=== PATIENT | female | born 1945 | race Caucasian/White ===

== ENCOUNTER 2016-10-26 07:15 | Inpatient (IN) | payer MEDICARE, OTHER ==
[2016-10-11 14:35] VITALS: BMI 40.0
[2016-10-11 15:27] VITALS: BP_SYST 124; RESP 18; TEMP 98.2
[~2016-10-26] VITALS: Ht 185.4 cm; Wt 108.0 kg
[2016-11-09] VITALS (24 sets, daily range): BP systolic 81–149; RESP 16–26; TEMP 97.4–98.3; BMI 39.2
[2016-11-09] MEDS ORDERED: ALVIMOPAN 12 MG CAP PO ONE (06:30)
[2016-11-09] MEDS ORDERED: CEFOXITIN 2,000 MG in SODIUM CHLORIDE 0.9% 100 ML IV ONE (06:30)
[2016-11-09] MEDS ORDERED: LACT RINGERS 1,000 ML IV SCH (06:55)
[2016-11-09] MEDS ORDERED: MIDAZOLAM 2 MG/2 ML INJ IV ONE ×2 (06:55→10:11)
[2016-11-09] MEDS ORDERED: GLYCOPYRROLATE 0.2 MG/ML VIAL IV ONE ×3 (06:55→10:48)
[2016-11-09] MEDS ORDERED: LIDOCAINE 1% BUFFERED 1 ML SYR INTRADERM PRN (06:55)
[2016-11-09] MEDS ORDERED: SALINE FLUSH 10 ML FLUSH PRN (08:55)
[2016-11-09] MEDS ORDERED: DILTIAZEM CD 240 MG CAP PO SCH (09:00)
[2016-11-09] MEDS ORDERED: DEXTROSE 50% SYRINGE 50 ML IV PRN (10:05)
[2016-11-09] MEDS ORDERED: GLUCAGON 1 MG VIAL IM PRN (10:05)
[2016-11-09] MEDS ORDERED: GLUCAGON 1 MG VIAL IV ONE (10:40)
[2016-11-09] MEDS ORDERED: NEOSTIGMINE 10 MG/10 ML VIAL IV ONE (10:48)
[2016-11-09] MEDS ORDERED: ONDANSETRON 4 MG VIAL IV PUSH ONE (10:48)
[2016-11-09] MEDS ORDERED: PHENYLEPHRINE 10 MG/ML VIAL IV ONE (10:48)
[2016-11-09] MEDS ORDERED: ROCURONIUM 50 MG VIAL IV ONE (10:48)
[2016-11-09] MEDS ORDERED: PROPOFOL 20 ML PER ML IV ONE (10:48)
[2016-11-09] MEDS ORDERED: FENTANYL 100 MCG/2 ML AMP IV ONE (10:48)
[2016-11-09] MEDS: novoLOG MIX 70/30 INSULIN SUBQ SCH ×2 (11:30→16:45)
[2016-11-09] MEDS: CETIRIZINE 10 MG TAB PO SCH (12:15)
[2016-11-09] MEDS: OLOPATADINE 0.1% OP SOLN EYE EACH SCH (12:19)
[2016-11-09] MEDS: LISINOPRIL 10 MG TAB PO SCH (12:23)
[2016-11-09] MEDS: METOPROLOL TART 25 MG TAB PO SCH ×2 (12:24→20:50)
[2016-11-09] MEDS: DUONEB INH SCH ×2 (14:19→22:37)
[2016-11-09] MEDS: SALINE FLUSH 10 ML FLUSH SCH (20:50)
[2016-11-09] MEDS: ROSUVASTATIN 20 MG TAB PO SCH (20:50)
[2016-11-09] MEDS: SODIUM CHLORIDE 0.9% FLUSH BAG 500 ML IV SCH (23:04)
[2016-11-10 03:38] VITALS: BP_SYST 144; RESP 18; TEMP 98.2
[2016-11-10] MEDS: DUONEB INH SCH ×3 (06:59→23:00)
[2016-11-10 07:31] VITALS: BP_SYST 150; RESP 18; TEMP 97.7
[2016-11-10] MEDS: novoLOG MIX 70/30 INSULIN SUBQ SCH ×2 (08:00→16:55)
[2016-11-10] MEDS: OLOPATADINE 0.1% OP SOLN EYE EACH SCH (08:29)
[2016-11-10] MEDS: SALINE FLUSH 10 ML FLUSH SCH ×2 (08:30→20:38)
[2016-11-10] MEDS: CETIRIZINE 10 MG TAB PO SCH (08:30)
[2016-11-10] MEDS: DILTIAZEM CD 180 MG CAP PO SCH (08:30)
[2016-11-10] MEDS: LISINOPRIL 10 MG TAB PO SCH (08:30)
[2016-11-10] MEDS: METOPROLOL TART 25 MG TAB PO SCH ×2 (08:30→20:50)
[2016-11-10] MEDS ORDERED: LIDOCAINE 1% BUFFERED 1 ML SYR INTRADERM PRN (10:50)
[2016-11-10] MEDS ORDERED: LACT RINGERS 1,000 ML IV SCH (10:50)
[2016-11-10] MEDS ORDERED: GLYCOPYRROLATE 0.2 MG/ML VIAL IV ONE (10:50)
[2016-11-10] MEDS ORDERED: MIDAZOLAM 2 MG/2 ML INJ IV ONE (10:50)
[2016-11-10 11:06] VITALS: BP_SYST 158; RESP 18; TEMP 97.7
[2016-11-10 15:15] VITALS: BP_SYST 144; RESP 18; TEMP 98.1
[2016-11-10] MEDS ORDERED: MAG CIT SOLN 300 ML PO ONE (16:00)
[2016-11-10] MEDS ORDERED: CEFOXITIN 2,000 MG in SODIUM CHLORIDE 0.9% 100 ML IV ONE (18:15)
[2016-11-10] MEDS ORDERED: ALVIMOPAN 12 MG CAP PO ONE (18:15)
[2016-11-10 19:00] VITALS: BP_SYST 149; RESP 18; TEMP 98.1
[2016-11-10] MEDS: ROSUVASTATIN 20 MG TAB PO SCH (20:50)
[2016-11-10 22:58] VITALS: BP_SYST 131; RESP 20; TEMP 98
[2016-11-11] VITALS (19 sets, daily range): BP systolic 112–185; RESP 16–22; TEMP 97.4–98.6
[2016-11-11] MEDS ORDERED: MAG CIT SOLN 300 ML PO ONE (03:00)
[2016-11-11] MEDS: SODIUM CHLORIDE 0.9% FLUSH BAG 500 ML IV SCH (04:31)
[2016-11-11] MEDS ORDERED: MIDAZOLAM 2 MG/2 ML INJ ONE (06:39)
[2016-11-11] MEDS ORDERED: CEFOXITIN 2,000 MG in SODIUM CHLORIDE 0.9% 100 ML IV ONE (06:40)
[2016-11-11] MEDS: DUONEB INH SCH ×3 (06:55→23:00)
[2016-11-11] MEDS: novoLOG MIX 70/30 INSULIN SUBQ SCH ×2 (08:00→17:00)
[2016-11-11] MEDS: SALINE FLUSH 10 ML FLUSH SCH ×2 (08:00→20:00)
[2016-11-11] MEDS ORDERED: MORPHINE 2 MG/ML SYR IV PRN (08:35)
[2016-11-11] MEDS ORDERED: MEPERIDINE 25 MG/ML IV PRN (08:35)
[2016-11-11] MEDS ORDERED: MORPHINE 4 MG/ML SYR IV PRN (08:35)
[2016-11-11] MEDS ORDERED: DILAUDID 1 MG/ML AMP IV PRN (08:35)
[2016-11-11] MEDS ORDERED: ONDANSETRON 4 MG VIAL IV PRN (08:35)
[2016-11-11] MEDS ORDERED: OXYCODONE 5 MG TAB PO PRN (08:35)
[2016-11-11] MEDS ORDERED: NALOXONE 0.4 MG/ML AMP IV PRN (08:35)
[2016-11-11] MEDS: METOPROLOL TART 25 MG TAB PO SCH ×3 (09:00→22:00)
[2016-11-11] MEDS: DILTIAZEM CD 180 MG CAP PO SCH ×2 (09:00→12:54)
[2016-11-11] MEDS: OLOPATADINE 0.1% OP SOLN EYE EACH SCH ×2 (09:00→12:53)
[2016-11-11] MEDS: CETIRIZINE 10 MG TAB PO SCH ×2 (09:00→12:55)
[2016-11-11] MEDS: LISINOPRIL 10 MG TAB PO SCH ×2 (09:00→12:55)
[2016-11-11] MEDS: BUPIV/FENT 0.125%-2MCG/ML 100 ML EPIDURAL SCH ×2 (10:00→18:47)
[2016-11-11] MEDS: **ONLY ANESTEHSIA MAY ORDER OPIATES WHILE ON EPIDURAL XX SCH ×2 (12:34→19:41)
[2016-11-11] MEDS: CEFOXITIN 2,000 MG in SODIUM CHLORIDE 0.9% 100 ML IV SCH ×2 (12:57→17:33)
[2016-11-11] MEDS: ALVIMOPAN 12 MG CAP PO SCH ×2 (12:57→22:00)
[2016-11-11] MEDS ORDERED: MISSING DOSE XX ONE (13:15)
[2016-11-11] MEDS: PANTOPRAZOLE 40 MG VIAL IV SCH (14:07)
[2016-11-11] MEDS ORDERED: OXYCODONE/APAP 5/325 TAB PO PRN (17:40)
[2016-11-11] MEDS: ONDANSETRON 4 MG VIAL IV PRN (18:16)
[2016-11-11] MEDS: SODIUM CHLORIDE 0.9% 1,000 ML IV SCH (20:36)
[2016-11-11] MEDS: ROSUVASTATIN 20 MG TAB PO SCH (22:00)
[2016-11-11] MEDS: PROMETHAZINE 25 MG/ML VIAL IV PRN (22:02)
[2016-11-12] MEDS: CEFOXITIN 2,000 MG in SODIUM CHLORIDE 0.9% 100 ML IV SCH ×3 (00:25→11:21)
[2016-11-12 03:45] VITALS: BP_SYST 177; RESP 18; TEMP 98.5
[2016-11-12] MEDS: SODIUM CHLORIDE 0.9% FLUSH BAG 500 ML IV SCH ×2 (04:08→22:41)
[2016-11-12] MEDS: BUPIV/FENT 0.125%-2MCG/ML 100 ML EPIDURAL SCH ×2 (05:27→15:39)
[2016-11-12] MEDS: DUONEB INH SCH ×3 (06:13→22:25)
[2016-11-12 07:26] VITALS: BP_SYST 178; RESP 15; TEMP 98.6
[2016-11-12] MEDS: **ONLY ANESTEHSIA MAY ORDER OPIATES WHILE ON EPIDURAL XX SCH ×2 (08:00→19:59)
[2016-11-12] MEDS: novoLOG MIX 70/30 INSULIN SUBQ SCH ×2 (08:39→17:00)
[2016-11-12] MEDS: OLOPATADINE 0.1% OP SOLN EYE EACH SCH (08:39)
[2016-11-12] MEDS: LISINOPRIL 10 MG TAB PO SCH (08:40)
[2016-11-12] MEDS: CETIRIZINE 10 MG TAB PO SCH (08:40)
[2016-11-12] MEDS: METOPROLOL TART 25 MG TAB PO SCH ×2 (08:40→20:31)
[2016-11-12] MEDS: DILTIAZEM CD 180 MG CAP PO SCH (08:40)
[2016-11-12] MEDS: PANTOPRAZOLE 40 MG VIAL IV SCH (08:46)
[2016-11-12] MEDS: SALINE FLUSH 10 ML FLUSH SCH ×2 (08:47→19:59)
[2016-11-12] MEDS: ALVIMOPAN 12 MG CAP PO SCH ×2 (08:47→20:31)
[2016-11-12 11:16] VITALS: BP_SYST 121; RESP 15; TEMP 98.1
[2016-11-12 15:29] VITALS: BP_SYST 118; RESP 15; TEMP 97.4
[2016-11-12 19:22] VITALS: BP_SYST 141; RESP 18; TEMP 98.6
[2016-11-12] MEDS: ROSUVASTATIN 20 MG TAB PO SCH (20:30)
[2016-11-12] MEDS ORDERED: Furosemide 20 MG/2 ML VIAL IV ONE (21:30)
[2016-11-12] MEDS: KCL CR 10 MEQ TAB PO SCH (22:07)
[2016-11-12 22:48] VITALS: BP_SYST 152; RESP 18; TEMP 98.3
[2016-11-13] MEDS: SODIUM CHLORIDE 0.9% 1,000 ML IV SCH ×2 (00:07→13:21)
[2016-11-13] MEDS: BUPIV/FENT 0.125%-2MCG/ML 100 ML EPIDURAL SCH ×2 (02:47→15:20)
[2016-11-13 02:57] VITALS: BP_SYST 120; RESP 16; TEMP 98
[2016-11-13 07:36] VITALS: BP_SYST 134; RESP 16; TEMP 98.1
[2016-11-13] MEDS: DUONEB INH SCH ×3 (07:48→22:26)
[2016-11-13] MEDS: **ONLY ANESTEHSIA MAY ORDER OPIATES WHILE ON EPIDURAL XX SCH ×2 (08:00→19:55)
[2016-11-13] MEDS: SALINE FLUSH 10 ML FLUSH SCH ×2 (08:55→19:55)
[2016-11-13] MEDS: novoLOG MIX 70/30 INSULIN SUBQ SCH ×2 (08:56→16:48)
[2016-11-13] MEDS: OLOPATADINE 0.1% OP SOLN EYE EACH SCH (08:57)
[2016-11-13] MEDS: PANTOPRAZOLE 40 MG VIAL IV SCH (08:58)
[2016-11-13] MEDS: CETIRIZINE 10 MG TAB PO SCH (08:58)
[2016-11-13] MEDS: ALVIMOPAN 12 MG CAP PO SCH ×2 (08:58→19:50)
[2016-11-13] MEDS: LISINOPRIL 10 MG TAB PO SCH (08:58)
[2016-11-13] MEDS: METOPROLOL TART 25 MG TAB PO SCH ×2 (08:58→19:51)
[2016-11-13] MEDS: DILTIAZEM CD 180 MG CAP PO SCH (08:59)
[2016-11-13] MEDS: ONDANSETRON 4 MG VIAL IV PRN ×2 (09:07→16:15)
[2016-11-13] MEDS: ASPIRIN 81 MG CHEW TAB PO SCH (09:18)
[2016-11-13] MEDS: KCL CR 10 MEQ TAB PO SCH ×2 (09:18→19:51)
[2016-11-13 10:59] VITALS: BP_SYST 149; RESP 16; TEMP 98.2
[2016-11-13 15:35] VITALS: BP_SYST 128; RESP 16; TEMP 98
[2016-11-13 19:14] VITALS: BP_SYST 159; RESP 18; TEMP 98.3
[2016-11-13] MEDS: ROSUVASTATIN 20 MG TAB PO SCH (19:50)
[2016-11-13 22:31] VITALS: BP_SYST 167; RESP 16; TEMP 99.5
[2016-11-14] VITALS (9 sets, daily range): BP systolic 122–174; RESP 16–22; TEMP 97.7–99.2; Ht 185.4 cm; Wt 108.0 kg
[2016-11-14] MEDS: SODIUM CHLORIDE 0.9% FLUSH BAG 500 ML IV SCH (03:42)
[2016-11-14] MEDS: SODIUM CHLORIDE 0.9% 1,000 ML IV SCH ×2 (04:57→17:16)
[2016-11-14] MEDS: BUPIV/FENT 0.125%-2MCG/ML 100 ML EPIDURAL SCH (04:58)
[2016-11-14] MEDS: PANTOPRAZOLE 40 MG TAB PO SCH (06:20)
[2016-11-14] MEDS: DUONEB INH SCH ×3 (07:04→22:12)
[2016-11-14] MEDS: SALINE FLUSH 10 ML FLUSH SCH ×2 (08:00→19:28)
[2016-11-14] MEDS: **ONLY ANESTEHSIA MAY ORDER OPIATES WHILE ON EPIDURAL XX SCH (08:00)
[2016-11-14] MEDS: PANTOPRAZOLE 40 MG VIAL IV SCH (08:46)
[2016-11-14] MEDS: ALVIMOPAN 12 MG CAP PO SCH (08:46)
[2016-11-14] MEDS: OLOPATADINE 0.1% OP SOLN EYE EACH SCH (08:46)
[2016-11-14] MEDS: ASPIRIN 81 MG CHEW TAB PO SCH (08:46)
[2016-11-14] MEDS: novoLOG MIX 70/30 INSULIN SUBQ SCH ×2 (08:46→18:11)
[2016-11-14] MEDS: METOPROLOL TART 25 MG TAB PO SCH ×2 (08:47→19:28)
[2016-11-14] MEDS: KCL CR 10 MEQ TAB PO SCH ×2 (08:47→19:28)
[2016-11-14] MEDS: CETIRIZINE 10 MG TAB PO SCH (08:47)
[2016-11-14] MEDS: LISINOPRIL 10 MG TAB PO SCH (08:47)
[2016-11-14] MEDS: DILTIAZEM CD 180 MG CAP PO SCH (08:48)
[2016-11-14] MEDS: NYSTATIN 500,000 UNITS/5 ML SUSP SWISH.SWAL SCH ×4 (11:07→19:28)
[2016-11-14] MEDS: ONDANSETRON 4 MG VIAL IV PRN (14:28)
[2016-11-14] MEDS: MORPHINE 2 MG/ML SYR IV PRN ×2 (14:32→17:15)
[2016-11-14] MEDS: ROSUVASTATIN 20 MG TAB PO SCH (19:28)
[2016-11-15 03:16] VITALS: BP_SYST 155; RESP 18; TEMP 97.9
[2016-11-15] MEDS: SODIUM CHLORIDE 0.9% 1,000 ML IV SCH ×2 (05:00→17:52)
[2016-11-15] MEDS: PANTOPRAZOLE 40 MG TAB PO SCH (05:54)
[2016-11-15] MEDS: SODIUM CHLORIDE 0.9% FLUSH BAG 500 ML IV SCH ×2 (05:57→20:28)
[2016-11-15 07:15] VITALS: BP_SYST 114; RESP 22; TEMP 97.8
[2016-11-15] MEDS: ONDANSETRON 4 MG VIAL IV PRN (07:57)
[2016-11-15] MEDS: MORPHINE 2 MG/ML SYR IV PRN ×2 (07:58→12:24)
[2016-11-15] MEDS: novoLOG MIX 70/30 INSULIN SUBQ SCH ×2 (07:59→17:00)
[2016-11-15] MEDS: DUONEB INH SCH ×2 (08:05→14:22)
[2016-11-15] MEDS: NEB-XOPENEX 1.25 MG/3 ML INH SCH ×4 (08:40→22:30)
[2016-11-15] MEDS: OLOPATADINE 0.1% OP SOLN EYE EACH SCH (09:38)
[2016-11-15] MEDS: ASPIRIN 81 MG CHEW TAB PO SCH (09:39)
[2016-11-15] MEDS: DILTIAZEM CD 180 MG CAP PO SCH (09:39)
[2016-11-15] MEDS: CETIRIZINE 10 MG TAB PO SCH (09:39)
[2016-11-15] MEDS: KCL CR 10 MEQ TAB PO SCH ×2 (09:39→20:27)
[2016-11-15] MEDS: LISINOPRIL 10 MG TAB PO SCH (09:40)
[2016-11-15] MEDS: METOPROLOL TART 25 MG TAB PO SCH (09:40)
[2016-11-15] MEDS: NYSTATIN 500,000 UNITS/5 ML SUSP SWISH.SWAL SCH ×4 (09:41→20:27)
[2016-11-15] MEDS: SALINE FLUSH 10 ML FLUSH SCH ×2 (10:16→20:28)
[2016-11-15 10:43] VITALS: BP_SYST 140; RESP 16; TEMP 98.6
[2016-11-15] MEDS: PROMETHAZINE 25 MG/ML VIAL IV PRN (12:23)
[2016-11-15] MEDS ORDERED: METOPROLOL TART 25 MG TAB PO ONE (12:25)
[2016-11-15] MEDS: LEVOFLOXACIN 500 MG TAB PO SCH (13:44)
[2016-11-15 14:48] VITALS: BP_SYST 149; RESP 16; TEMP 98.2
[2016-11-15 19:41] VITALS: BP_SYST 157; RESP 16; TEMP 98.4
[2016-11-15] MEDS: METOPROLOL TART 50 MG TAB PO SCH (20:27)
[2016-11-15] MEDS: ROSUVASTATIN 20 MG TAB PO SCH (20:27)
[2016-11-15 23:17] VITALS: BP_SYST 182; RESP 16; TEMP 98.5
[2016-11-16] VITALS (11 sets, daily range): BP systolic 150–176; RESP 16–18; TEMP 98.1–99.1
[2016-11-16] MEDS: PROMETHAZINE 25 MG/ML VIAL IV PRN (02:36)
[2016-11-16] MEDS: MORPHINE 2 MG/ML SYR IV PRN (05:05)
[2016-11-16] MEDS: SODIUM CHLORIDE 0.9% 1,000 ML IV SCH (05:07)
[2016-11-16] MEDS: METOPROLOL TART 50 MG TAB PO ONE ×2 (05:33→05:35)
[2016-11-16] MEDS: novoLOG MIX 70/30 INSULIN SUBQ SCH (08:00)
[2016-11-16] MEDS: SALINE FLUSH 10 ML FLUSH SCH (08:00)
[2016-11-16] MEDS: NEB-XOPENEX 1.25 MG/3 ML INH SCH ×2 (08:10→15:00)
[2016-11-16] MEDS ORDERED: KCL CR 20 MEQ TAB PO ONE (08:25)
[2016-11-16] MEDS: POTASSIUM CHLORIDE PREMIX 50 ML IV SCH ×2 (08:53→10:02)
[2016-11-16] MEDS: OLOPATADINE 0.1% OP SOLN EYE EACH SCH (08:54)
[2016-11-16] MEDS: NYSTATIN 500,000 UNITS/5 ML SUSP SWISH.SWAL SCH (08:55)
[2016-11-16] MEDS: CETIRIZINE 10 MG TAB PO SCH (08:56)
[2016-11-16] MEDS: KCL CR 10 MEQ TAB PO SCH (08:56)
[2016-11-16] MEDS: LEVOFLOXACIN 500 MG TAB PO SCH (08:56)
[2016-11-16] MEDS: LISINOPRIL 10 MG TAB PO SCH (08:56)
[2016-11-16] MEDS: METOPROLOL TART 50 MG TAB PO SCH (08:56)
[2016-11-16] MEDS: DILTIAZEM CD 180 MG CAP PO SCH (08:56)
[2016-11-16] MEDS: ASPIRIN 81 MG CHEW TAB PO SCH (08:56)
[2016-11-16] MEDS: PANTOPRAZOLE 40 MG TAB PO SCH (08:59)
[2016-11-16] MEDS: MAGNESIUM SULF 1 GM/100 ML 100 ML IV SCH ×2 (11:05→12:21)
== END 2016-11-16 15:04 | DRG 329 ==
LOC: ENRESERVDT → ENRESERVTM → SDS 11-09 06:23 → PCU 11-09 09:46 → 5THE 11-11 11:27
PROVIDERS: ADMIT Surgery; ATTEND Surgery
PROC: 0DBN0ZZ Excision of Sigmoid Colon, Open Approach (ICD-10-PCS; principal; 2016-11-11 07:29)
DX: K57.32 Diverticulitis of large intestine without perforation or abscess without bleeding (principal); J18.9 Pneumonia, unspecified organism; I48.0 Paroxysmal atrial fibrillation; I25.82 Chronic total occlusion of coronary artery; B37.0 Candidal stomatitis; E11.9 Type 2 diabetes mellitus without complications; I25.10 Atherosclerotic heart disease of native coronary artery without angina pectoris; Z95.5 Presence of coronary angioplasty implant and graft; Z87.891 Personal history of nicotine dependence; Z79.4 Long term (current) use of insulin; E78.5 Hyperlipidemia, unspecified
CPT/HCPCS: 36600; 71010; 71020; 80048; 80053; 82550; 82553; 82803; 82947; 83735; 83880; 84439; 84443; 84484; 85025; 85610; 85730; 88305; 88307; 93005; 93306; 94640; 94762; 94799

== ENCOUNTER 2016-11-17 17:14 | Inpatient (IN) | payer MEDICARE, OTHER ==
[~2016-11-17] VITALS: Ht 160 cm; Wt 97.5 kg
[~2016-11-17 17:14] MED LIST: BACITRACIN 50,000 UNITS INJ IRRIG ONE; BUPIVACA/EPI 0.5% 50ML NERVEBLOCK ONE; KETAMINE INJ 50 MG/ML VIAL IV ONE; LIDOCAINE 1% 20ML NERVEBLOCK ONE; LIDOCAINE 2% SYR 5 ML IV ONE; PROPOFOL 50ML VIAL IV ONE; hePARIN 1,000 UNITS/ML (PORCINE) 10 ML IV ONE
[2016-11-17] MEDS ORDERED: OPTIRAY 350 100 ML VIAL EDI IV ONE (17:15)
[2016-11-17] MEDS ORDERED: ONDANSETRON 4 MG VIAL ONE (17:54)
[2016-11-17] MEDS ORDERED: DILAUDID 1 MG/ML AMP ONE ×2 (17:55→22:40)
[2016-11-17] MEDS ORDERED: SODIUM CHLORIDE 0.9% 500 ML IV ONE (18:48)
[2016-11-17] MEDS ORDERED: ED DILTIAZEM DRIP 125 ML IV ONE (18:48)
[2016-11-17] MEDS ORDERED: DILTIAZEM 50 MG/10 ML VIAL IV ONE (18:48)
[2016-11-17] MEDS ORDERED: LIDOCAINE 2% 20 ML ONE (21:12)
[2016-11-17] MEDS ORDERED: POTASSIUM CHLOR 10MEQ -ED ONLY 50 ML IV ONE (21:14)
[2016-11-17] MEDS ORDERED: MAGNESIUM SULF 1 GM/100 ML 100 ML IV ONE (22:05)
[2016-11-17] MEDS ORDERED: CARDIZEM 1 MG/ML DRIP 125 ML IV SCH (22:15)
[2016-11-17] MEDS ORDERED: DEXTROSE 50% SYRINGE 50 ML IV PRN (23:05)
[2016-11-17] MEDS ORDERED: LEVOFLOXACIN 500 MG/100 ML 100 ML IV ONE (23:05)
[2016-11-17] MEDS ORDERED: GLUCAGON 1 MG VIAL IM PRN (23:05)
[2016-11-17] MEDS ORDERED: DIGOXIN 0.5 MG/2 ML AMP IV ONE (23:05)
[2016-11-17 23:24] VITALS: BP_SYST 136; RESP 20; TEMP 97.9
[2016-11-17 23:25] VITALS: Ht 160 cm; Wt 97.5 kg
[2016-11-17 23:33] VITALS: BP_SYST 140
[2016-11-17 23:45] VITALS: BP_SYST 131
[2016-11-18] VITALS (19 sets, daily range): BP systolic 123–180; RESP 16–18; TEMP 97.8–98.2
[2016-11-18] MEDS: SODIUM CHLOR 0.9% W/KCL 20MEQ 1,000 ML IV SCH ×2 (00:03→16:27)
[2016-11-18] MEDS: PIPERACIL/TAZO 3.375GM/50ML 50 ML IV SCH ×3 (00:03→16:24)
[2016-11-18] MEDS: FLUCONAZOLE 100 MG in SODIUM CHLORIDE 0.9% 50 ML IV SCH ×2 (00:56→11:21)
[2016-11-18] MEDS: ONDANSETRON 4 MG VIAL IV PUSH PRN (05:44)
[2016-11-18] MEDS: SODIUM CHLORIDE 0.9% FLUSH BAG 500 ML IV SCH (05:48)
[2016-11-18] MEDS ORDERED: MISSING DOSE XX ONE (05:55)
[2016-11-18] MEDS: DILAUDID 1 MG/ML AMP IV PRN (06:07)
[2016-11-18] MEDS: FAMOTIDINE 20 MG INJ IV SCH ×2 (08:25→20:06)
[2016-11-18] MEDS: ASPIRIN 81 MG CHEW TAB PO SCH (08:25)
[2016-11-18] MEDS: DILTIAZEM CD 180 MG CAP PO SCH (08:28)
[2016-11-18] MEDS: METOPROLOL TART 50 MG TAB PO SCH ×2 (08:30→20:06)
[2016-11-18] MEDS: LISINOPRIL 10 MG TAB PO SCH (08:36)
[2016-11-18] MEDS: LEVOFLOXACIN 500 MG/100 ML 100 ML IV SCH (09:53)
[2016-11-18] MEDS ORDERED: KCL CR 20 MEQ TAB PO ONE (10:35)
[2016-11-18] MEDS ORDERED: MAGNESIUM SULF 1 GM/100 ML 100 ML IV ONE (10:35)
[2016-11-18] MEDS: POTASSIUM CHLORIDE PREMIX 50 ML IV SCH ×2 (11:19→12:16)
[2016-11-18] MEDS: HYDROGEN PEROXIDE 3% 480 ML TOPICAL SCH (19:58)
[2016-11-19] MEDS: SODIUM CHLOR 0.9% W/KCL 20MEQ 1,000 ML IV SCH (00:07)
[2016-11-19] MEDS: HYDROGEN PEROXIDE 3% 480 ML TOPICAL SCH ×6 (00:08→21:32)
[2016-11-19] MEDS: PIPERACIL/TAZO 3.375GM/50ML 50 ML IV SCH ×3 (00:08→17:43)
[2016-11-19 02:32] VITALS: BP_SYST 143; RESP 18; TEMP 97.6
[2016-11-19] MEDS: SODIUM CHLORIDE 0.9% FLUSH BAG 500 ML IV SCH (05:17)
[2016-11-19 07:30] VITALS: BP_SYST 130; RESP 18; TEMP 97.7
[2016-11-19] MEDS: ASPIRIN 81 MG CHEW TAB PO SCH (08:14)
[2016-11-19] MEDS: FAMOTIDINE 20 MG INJ IV SCH ×2 (08:14→21:31)
[2016-11-19] MEDS: METOPROLOL TART 50 MG TAB PO SCH ×2 (08:15→21:31)
[2016-11-19] MEDS: FLUCONAZOLE 100 MG in SODIUM CHLORIDE 0.9% 50 ML IV SCH (08:15)
[2016-11-19] MEDS: DILTIAZEM CD 180 MG CAP PO SCH (08:15)
[2016-11-19] MEDS: LISINOPRIL 10 MG TAB PO SCH (08:15)
[2016-11-19] MEDS: LEVOFLOXACIN 500 MG/100 ML 100 ML IV SCH (08:15)
[2016-11-19] MEDS ORDERED: ZOLPIDEM 5 MG TAB PO PRN (10:20)
[2016-11-19 10:59] VITALS: BP_SYST 138; RESP 16; TEMP 97.8
[2016-11-19 15:27] VITALS: BP_SYST 150; RESP 16; TEMP 98.7
[2016-11-19 20:00] VITALS: BP_SYST 165; RESP 18; TEMP 98.6
[2016-11-19 23:00] VITALS: BP_SYST 148; RESP 20; TEMP 98.4
[2016-11-20] VITALS (9 sets, daily range): BP systolic 120–153; RESP 16–20; TEMP 98–99
[2016-11-20] MEDS: HYDROGEN PEROXIDE 3% 480 ML TOPICAL SCH ×6 (01:22→20:24)
[2016-11-20] MEDS: PIPERACIL/TAZO 3.375GM/50ML 50 ML IV SCH ×2 (01:22→09:22)
[2016-11-20] MEDS: SODIUM CHLORIDE 0.9% FLUSH BAG 500 ML IV SCH (01:23)
[2016-11-20] MEDS ORDERED: LISINOPRIL 10 MG TAB PO SCH (09:00)
[2016-11-20] MEDS: FLUCONAZOLE 100 MG in SODIUM CHLORIDE 0.9% 50 ML IV SCH (09:22)
[2016-11-20] MEDS: DILTIAZEM CD 180 MG CAP PO SCH (09:23)
[2016-11-20] MEDS: FAMOTIDINE 20 MG INJ IV SCH ×2 (09:23→20:24)
[2016-11-20] MEDS: ASPIRIN 81 MG CHEW TAB PO SCH (09:23)
[2016-11-20] MEDS: METOPROLOL TART 50 MG TAB PO SCH ×2 (09:23→20:24)
[2016-11-20] MEDS: LISINOPRIL 10 MG TAB PO SCH (09:23)
[2016-11-20] MEDS ORDERED: PHARMACY TO DOSE GENTAMICIN IV SCH (14:05)
[2016-11-20] MEDS ORDERED: PHARMACY TO DOSE VANCOMYCIN IV SCH (14:05)
[2016-11-20] MEDS ORDERED: VANCOMYCIN 2,000 MG in SODIUM CHLORIDE 0.9% 500 ML IV ONE (14:35)
[2016-11-20] MEDS ORDERED: GENTAMICIN 370 MG in SODIUM CHLORIDE 0.9% 100 ML IV ONE (14:35)
[2016-11-20] MEDS: DILAUDID 1 MG/ML AMP IV PRN (18:00)
[2016-11-20] MEDS ORDERED: POTASSIUM CHLORIDE PREMIX 10 MEQ in PART FILL PIGGYBACK 1 EA IV SCH (20:20)
[2016-11-20] MEDS ORDERED: POTASSIUM CHLORIDE PREMIX 10 MEQ in PART FILL PIGGYBACK 1 EA IV ONE (21:00)
[2016-11-20] MEDS ORDERED: POTASSIUM CHLORIDE PREMIX 50 ML IV SCH (21:00)
[2016-11-21] MEDS: ONDANSETRON 4 MG VIAL IV PUSH PRN (00:29)
[2016-11-21] MEDS: HYDROGEN PEROXIDE 3% 480 ML TOPICAL SCH ×6 (01:18→21:06)
[2016-11-21] MEDS ORDERED: VANCOMYCIN 1,500 MG in SODIUM CHLORIDE 0.9% 250 ML IV SCH (03:00)
[2016-11-21 03:20] VITALS: BP_SYST 147; TEMP 97.5
[2016-11-21 03:21] VITALS: RESP 18
[2016-11-21] MEDS: SODIUM CHLORIDE 0.9% FLUSH BAG 500 ML IV SCH (06:25)
[2016-11-21 07:12] VITALS: BP_SYST 155; RESP 16; TEMP 98.5
[2016-11-21] MEDS: FLUCONAZOLE 100 MG in SODIUM CHLORIDE 0.9% 50 ML IV SCH (08:14)
[2016-11-21] MEDS: FAMOTIDINE 20 MG INJ IV SCH ×2 (08:18→21:06)
[2016-11-21] MEDS: DILAUDID 1 MG/ML AMP IV PRN ×2 (08:19→21:33)
[2016-11-21 11:36] VITALS: BP_SYST 145; RESP 16; TEMP 98.4
[2016-11-21] MEDS: METOPROLOL TART 50 MG TAB PO SCH ×2 (12:53→21:07)
[2016-11-21] MEDS: ASPIRIN 81 MG CHEW TAB PO SCH (12:53)
[2016-11-21] MEDS: LISINOPRIL 10 MG TAB PO SCH (12:53)
[2016-11-21] MEDS: DILTIAZEM CD 180 MG CAP PO SCH (12:54)
[2016-11-21 15:04] VITALS: BP_SYST 140; RESP 16; TEMP 98.3
[2016-11-21] MEDS: PIPERACIL/TAZO 3.375GM/50ML 50 ML IV SCH (17:04)
[2016-11-21 19:43] VITALS: BP_SYST 136; RESP 18; TEMP 98.2
[2016-11-22] VITALS (7 sets, daily range): BP systolic 127–157; RESP 16–18; TEMP 97.9–98.6
[2016-11-22] MEDS: HYDROGEN PEROXIDE 3% 480 ML TOPICAL SCH ×6 (00:56→20:58)
[2016-11-22] MEDS: PIPERACIL/TAZO 3.375GM/50ML 50 ML IV SCH ×3 (01:15→13:09)
[2016-11-22] MEDS: SODIUM CHLORIDE 0.9% FLUSH BAG 500 ML IV SCH (01:15)
[2016-11-22] MEDS: FLUCONAZOLE 100 MG in SODIUM CHLORIDE 0.9% 50 ML IV SCH (08:03)
[2016-11-22] MEDS: LISINOPRIL 10 MG TAB PO SCH (08:03)
[2016-11-22] MEDS: ASPIRIN 81 MG CHEW TAB PO SCH (08:03)
[2016-11-22] MEDS: METOPROLOL TART 50 MG TAB PO SCH ×2 (08:03→20:57)
[2016-11-22] MEDS: FAMOTIDINE 20 MG INJ IV SCH ×2 (08:03→20:58)
[2016-11-22] MEDS: DILTIAZEM CD 180 MG CAP PO SCH (08:03)
[2016-11-22] MEDS: DILAUDID 1 MG/ML AMP IV PRN ×5 (08:13→21:13)
[2016-11-22] MEDS: ONDANSETRON 4 MG VIAL IV PUSH PRN (10:43)
[2016-11-22] MEDS ORDERED: APIXABAN 5 MG TAB PO SCH (10:45)
[2016-11-23] VITALS (8 sets, daily range): BP systolic 153–169; RESP 16–18; TEMP 98–98.2
[2016-11-23] MEDS: HYDROGEN PEROXIDE 3% 480 ML TOPICAL SCH ×6 (01:20→20:21)
[2016-11-23] MEDS: SODIUM CHLORIDE 0.9% FLUSH BAG 500 ML IV SCH (05:46)
[2016-11-23] MEDS: FAMOTIDINE 20 MG INJ IV SCH ×2 (08:56→20:21)
[2016-11-23] MEDS: METOPROLOL TART 50 MG TAB PO SCH ×2 (08:56→20:19)
[2016-11-23] MEDS: DILTIAZEM CD 180 MG CAP PO SCH (08:56)
[2016-11-23] MEDS: ONDANSETRON 4 MG VIAL IV PUSH PRN ×2 (08:56→16:59)
[2016-11-23] MEDS: ASPIRIN 81 MG CHEW TAB PO SCH (08:57)
[2016-11-23] MEDS: DILAUDID 1 MG/ML AMP IV PRN ×2 (12:51→17:00)
[2016-11-24] MEDS: HYDROGEN PEROXIDE 3% 480 ML TOPICAL SCH ×6 (00:07→19:56)
[2016-11-24] MEDS: DILAUDID 1 MG/ML AMP IV PRN ×4 (03:08→22:16)
[2016-11-24 03:17] VITALS: BP_SYST 156; TEMP 98.1
[2016-11-24 03:18] VITALS: RESP 18
[2016-11-24] MEDS: SODIUM CHLORIDE 0.9% FLUSH BAG 500 ML IV SCH (06:00)
[2016-11-24 08:14] VITALS: BP_SYST 161; RESP 18; TEMP 98.4
[2016-11-24] MEDS: ASPIRIN 81 MG CHEW TAB PO SCH (08:21)
[2016-11-24] MEDS: METOPROLOL TART 50 MG TAB PO SCH ×2 (08:21→21:22)
[2016-11-24] MEDS: DILTIAZEM CD 180 MG CAP PO SCH (08:21)
[2016-11-24] MEDS: FAMOTIDINE 20 MG INJ IV SCH ×2 (08:22→21:22)
[2016-11-24] MEDS: ONDANSETRON 4 MG VIAL IV PUSH PRN ×2 (11:35→16:50)
[2016-11-24 15:30] VITALS: BP_SYST 162; RESP 18; TEMP 98.1
[2016-11-24 20:23] VITALS: BP_SYST 178; RESP 20; TEMP 98.2
[2016-11-25] VITALS (8 sets, daily range): BP systolic 147–179; RESP 16–20; TEMP 97.8–98.6
[2016-11-25] MEDS: HYDROGEN PEROXIDE 3% 480 ML TOPICAL SCH ×6 (00:38→21:38)
[2016-11-25] MEDS: SODIUM CHLORIDE 0.9% FLUSH BAG 500 ML IV SCH (05:39)
[2016-11-25] MEDS: METOPROLOL TART 50 MG TAB PO SCH ×2 (09:57→21:37)
[2016-11-25] MEDS: DILTIAZEM CD 180 MG CAP PO SCH (09:57)
[2016-11-25] MEDS: FAMOTIDINE 20 MG INJ IV SCH ×2 (09:57→21:37)
[2016-11-25] MEDS: ASPIRIN 81 MG CHEW TAB PO SCH (09:57)
[2016-11-25] MEDS: ONDANSETRON 4 MG VIAL IV PUSH PRN (09:58)
[2016-11-26 00:07] VITALS: BP_SYST 172; RESP 16; TEMP 98
[2016-11-26] MEDS: HYDROGEN PEROXIDE 3% 480 ML TOPICAL SCH ×6 (01:15→20:58)
[2016-11-26 03:53] VITALS: BP_SYST 177; RESP 16; TEMP 97.8
[2016-11-26] MEDS: SODIUM CHLORIDE 0.9% FLUSH BAG 500 ML IV SCH ×2 (06:00→23:39)
[2016-11-26 07:29] VITALS: BP_SYST 164; RESP 18; TEMP 97.9
[2016-11-26] MEDS: METOPROLOL TART 50 MG TAB PO SCH ×2 (08:27→20:54)
[2016-11-26] MEDS: ASPIRIN 81 MG CHEW TAB PO SCH (08:27)
[2016-11-26] MEDS: DILTIAZEM CD 180 MG CAP PO SCH (08:27)
[2016-11-26] MEDS: FAMOTIDINE 20 MG INJ IV SCH ×2 (08:27→20:54)
[2016-11-26 11:14] VITALS: BP_SYST 160; RESP 16; TEMP 98
[2016-11-26] MEDS: Furosemide 40 MG/4 ML VIAL IV SCH (13:17)
[2016-11-26 14:52] VITALS: BP_SYST 161; RESP 16; TEMP 98.5
[2016-11-26 19:21] VITALS: BP_SYST 179; RESP 18; TEMP 98.4
[2016-11-26] MEDS ORDERED: MIDAZOLAM 2 MG/2 ML INJ ONE (22:48)
[2016-11-27] VITALS (16 sets, daily range): BP systolic 130–181; RESP 16–28; TEMP 97.8–98.9
[2016-11-27] MEDS: HYDROGEN PEROXIDE 3% 480 ML TOPICAL SCH ×6 (00:10→23:17)
[2016-11-27] MEDS ORDERED: SODIUM CHLORIDE 0.9% 1,000 ML IV SCH (08:35)
[2016-11-27] MEDS ORDERED: SODIUM CHLORIDE 0.9% 1,000 ML IV PRN (08:35)
[2016-11-27] MEDS ORDERED: ALBUMIN HUMAN 25GM (25%) 100 ML IV PRN (08:35)
[2016-11-27] MEDS: EPOETIN 10,000 UNIT VIAL SUBQ SCH (10:15)
[2016-11-27] MEDS: Furosemide 40 MG/4 ML VIAL IV SCH (10:20)
[2016-11-27] MEDS: FAMOTIDINE 20 MG INJ IV SCH ×2 (10:20→20:57)
[2016-11-27] MEDS: METOPROLOL TART 50 MG TAB PO SCH ×2 (10:20→20:56)
[2016-11-27] MEDS: VENOFER 100 MG/5 ML VL IV SCH (10:20)
[2016-11-27] MEDS ORDERED: CEFAZOLIN 2,000 MG in SODIUM CHLORIDE 0.9% 100 ML IV ONE (11:10)
[2016-11-27] MEDS ORDERED: OXYCODONE 5 MG TAB PO PRN ×2 (12:15→12:50)
[2016-11-27] MEDS ORDERED: ONDANSETRON 4 MG VIAL IV PRN ×2 (12:15→12:50)
[2016-11-27] MEDS ORDERED: DILAUDID 1 MG/ML AMP IV PRN ×2 (12:15→12:50)
[2016-11-27] MEDS ORDERED: MORPHINE 4 MG/ML SYR IV PRN ×2 (12:15→12:50)
[2016-11-27] MEDS ORDERED: MEPERIDINE 25 MG/ML IV PRN ×2 (12:15→12:50)
[2016-11-27] MEDS ORDERED: MORPHINE 2 MG/ML SYR IV PRN ×2 (12:15→12:50)
[2016-11-27] MEDS ORDERED: LIDOCAINE 1% BUFFERED 1 ML SYR INTRADERM PRN (12:20)
[2016-11-27] MEDS ORDERED: SODIUM CHLORIDE 0.9% 500 ML IV SCH (12:20)
[2016-11-27] MEDS ORDERED: MIDAZOLAM 2 MG/2 ML INJ IV ONE (12:20)
[2016-11-27] MEDS: DILTIAZEM CD 180 MG CAP PO SCH (15:01)
[2016-11-28 03:05] VITALS: BP_SYST 164; RESP 16; TEMP 98.1
[2016-11-28] MEDS: SODIUM CHLORIDE 0.9% FLUSH BAG 500 ML IV SCH (05:37)
[2016-11-28 07:19] VITALS: BP_SYST 158; RESP 16; TEMP 98.6
[2016-11-28] MEDS: METOPROLOL TART 50 MG TAB PO SCH ×2 (09:51→21:30)
[2016-11-28] MEDS: FAMOTIDINE 20 MG INJ IV SCH ×2 (09:51→21:33)
[2016-11-28] MEDS: Furosemide 40 MG/4 ML VIAL IV SCH (09:51)
[2016-11-28] MEDS: VENOFER 100 MG/5 ML VL IV SCH (09:51)
[2016-11-28] MEDS: DILTIAZEM CD 180 MG CAP PO SCH (09:54)
[2016-11-28 10:33] VITALS: BP_SYST 156; RESP 18; TEMP 97.9
[2016-11-28 19:15] VITALS: BP_SYST 180; RESP 18; TEMP 98.3
[2016-11-28] MEDS: TRAZODONE 50 MG TAB PO SCH (21:00)
[2016-11-28 23:11] VITALS: BP_SYST 160; RESP 16; TEMP 97.9
[2016-11-29] VITALS (11 sets, daily range): BP systolic 145–168; RESP 16–22; TEMP 98–98.5
[2016-11-29] MEDS: SODIUM CHLORIDE 0.9% FLUSH BAG 500 ML IV SCH ×2 (05:50→23:37)
[2016-11-29] MEDS ORDERED: MISSING DOSE XX ONE (10:35)
[2016-11-29] MEDS: ONDANSETRON 4 MG VIAL IV PRN (10:40)
[2016-11-29] MEDS: VENOFER 100 MG/5 ML VL IV SCH (10:45)
[2016-11-29] MEDS: FAMOTIDINE 20 MG INJ IV SCH (10:46)
[2016-11-29] MEDS: Furosemide 40 MG/4 ML VIAL IV SCH (10:46)
[2016-11-29] MEDS: METOPROLOL TART 50 MG TAB PO SCH ×2 (10:46→22:03)
[2016-11-29] MEDS: DILTIAZEM CD 180 MG CAP PO SCH (15:13)
[2016-11-29] MEDS: EPOETIN 10,000 UNIT VIAL SUBQ SCH (16:25)
[2016-11-29] MEDS ORDERED: BISACODYL EC 5 MG TAB PO PRN (17:15)
[2016-11-29] MEDS: POLYETHYLENE GLYCOL 17 GM PACKET PO SCH (17:58)
[2016-11-29] MEDS: TRAZODONE 50 MG TAB PO SCH (22:03)
[2016-11-30] VITALS (7 sets, daily range): BP systolic 141–168; RESP 16–20; TEMP 97.9–99.1
[2016-11-30] MEDS: METOPROLOL TART 50 MG TAB PO SCH ×2 (07:48→21:32)
[2016-11-30] MEDS: Furosemide 40 MG/4 ML VIAL IV SCH (07:48)
[2016-11-30] MEDS: DILTIAZEM CD 180 MG CAP PO SCH (07:48)
[2016-11-30] MEDS: POLYETHYLENE GLYCOL 17 GM PACKET PO SCH (07:49)
[2016-11-30] MEDS ORDERED: hePARIN 1,000 UNITS/1 ML VIAL DIALYSIS ONE (09:01)
[2016-11-30] MEDS ORDERED: MISSING DOSE XX ONE ×2 (16:10→20:55)
[2016-11-30] MEDS: BISACODYL EC 5 MG TAB PO PRN (16:36)
[2016-11-30] MEDS ORDERED: MAG HYDROX 30 ML UDC PO ONE (20:40)
[2016-11-30] MEDS: TRAZODONE 50 MG TAB PO SCH (21:32)
[2016-11-30] MEDS: SODIUM CHLORIDE 0.9% FLUSH BAG 500 ML IV SCH (23:33)
[2016-12-01] VITALS (7 sets, daily range): BP systolic 163–208; RESP 16–20; TEMP 97.9–99
[2016-12-01] MEDS ORDERED: hePARIN 1,000 UNITS/1 ML VIAL ONE (04:09)
[2016-12-01] MEDS ORDERED: MISSING DOSE XX ONE ×2 (09:40)
[2016-12-01] MEDS: POLYETHYLENE GLYCOL 17 GM PACKET PO SCH (09:43)
[2016-12-01] MEDS: METOPROLOL TART 50 MG TAB PO SCH ×2 (09:44→20:44)
[2016-12-01] MEDS: Furosemide 40 MG/4 ML VIAL IV SCH (09:44)
[2016-12-01] MEDS: DILTIAZEM CD 180 MG CAP PO SCH (10:33)
[2016-12-01] MEDS: ASPIRIN EC 81 MG TAB PO SCH (10:33)
[2016-12-01] MEDS: EPOETIN 10,000 UNIT VIAL SUBQ SCH (10:34)
[2016-12-01] MEDS ORDERED: CATHFLO 2 MG VIAL IV ONE (13:25)
[2016-12-01] MEDS: TRAZODONE 50 MG TAB PO SCH (20:44)
[2016-12-01] MEDS: LEVOFLOXACIN 500 MG TAB PO SCH (20:44)
[2016-12-02] VITALS (8 sets, daily range): BP systolic 149–158; RESP 16–18; TEMP 97.6–99.1
[2016-12-02] MEDS: SODIUM CHLORIDE 0.9% FLUSH BAG 500 ML IV SCH (05:36)
[2016-12-02] MEDS: Furosemide 40 MG/4 ML VIAL IV SCH (08:13)
[2016-12-02] MEDS: DILTIAZEM CD 180 MG CAP PO SCH (08:13)
[2016-12-02] MEDS: METOPROLOL TART 50 MG TAB PO SCH ×2 (08:13→19:58)
[2016-12-02] MEDS: POLYETHYLENE GLYCOL 17 GM PACKET PO SCH (08:14)
[2016-12-02] MEDS: LEVOFLOXACIN 500 MG TAB PO SCH (08:14)
[2016-12-02] MEDS: ASPIRIN EC 81 MG TAB PO SCH (08:14)
[2016-12-02] MEDS: ONDANSETRON 4 MG VIAL IV PRN (16:11)
[2016-12-02] MEDS: TRAZODONE 50 MG TAB PO SCH (19:58)
[2016-12-03] VITALS (8 sets, daily range): BP systolic 133–162; RESP 16–18; TEMP 97.4–98.9
[2016-12-03] MEDS: SODIUM CHLORIDE 0.9% FLUSH BAG 500 ML IV SCH (05:07)
[2016-12-03] MEDS: LEVOFLOXACIN 500 MG TAB PO SCH (07:41)
[2016-12-03] MEDS: Furosemide 40 MG/4 ML VIAL IV SCH (07:41)
[2016-12-03] MEDS: DILTIAZEM CD 180 MG CAP PO SCH (07:41)
[2016-12-03] MEDS: POLYETHYLENE GLYCOL 17 GM PACKET PO SCH (07:42)
[2016-12-03] MEDS: EPOETIN 10,000 UNIT VIAL SUBQ SCH (07:42)
[2016-12-03] MEDS: ASPIRIN EC 81 MG TAB PO SCH (07:42)
[2016-12-03] MEDS: METOPROLOL TART 50 MG TAB PO SCH ×2 (07:42→20:01)
[2016-12-03] MEDS ORDERED: EPOETIN 40,000 UNIT VIAL SUBQ ONE (12:10)
[2016-12-03] MEDS: TRAZODONE 50 MG TAB PO SCH (20:01)
[2016-12-03] MEDS: BISACODYL EC 5 MG TAB PO PRN (20:53)
[2016-12-04] VITALS (9 sets, daily range): BP systolic 122–179; RESP 15–16; TEMP 98–98.7
[2016-12-04] MEDS: SODIUM CHLORIDE 0.9% FLUSH BAG 500 ML IV SCH (05:51)
[2016-12-04] MEDS: METOPROLOL TART 50 MG TAB PO SCH ×2 (08:29→20:51)
[2016-12-04] MEDS: LEVOFLOXACIN 500 MG TAB PO SCH (08:30)
[2016-12-04] MEDS: ASPIRIN EC 81 MG TAB PO SCH (08:30)
[2016-12-04] MEDS: DILTIAZEM CD 180 MG CAP PO SCH (08:30)
[2016-12-04] MEDS: POLYETHYLENE GLYCOL 17 GM PACKET PO SCH ×2 (08:30→08:32)
[2016-12-04] MEDS: TRAZODONE 50 MG TAB PO SCH (20:51)
[2016-12-05 03:09] VITALS: BP_SYST 170; TEMP 97.9
[2016-12-05 03:10] VITALS: RESP 16
[2016-12-05] MEDS: SODIUM CHLORIDE 0.9% FLUSH BAG 500 ML IV SCH (04:59)
[2016-12-05 07:13] VITALS: BP_SYST 179; RESP 16; TEMP 98.1
[2016-12-05] MEDS: LEVOFLOXACIN 500 MG TAB PO SCH (07:46)
[2016-12-05] MEDS: ASPIRIN EC 81 MG TAB PO SCH (07:47)
[2016-12-05] MEDS: METOPROLOL TART 50 MG TAB PO SCH (07:47)
[2016-12-05] MEDS: DILTIAZEM CD 180 MG CAP PO SCH (07:47)
[2016-12-05] MEDS: POLYETHYLENE GLYCOL 17 GM PACKET PO SCH (07:56)
[2016-12-05] MEDS: EPOETIN 10,000 UNIT VIAL SUBQ SCH (09:17)
[2016-12-05 09:21] VITALS: BP_SYST 179; RESP 16; TEMP 98.1
== END 2016-12-05 11:13 | disposition home health service (06) | DRG 862 ==
LOC: ENRESERVTM → ENRESERV → ENRESERVDT → ER 17:14 → EMR 20:50 → ENPENDDIS 20:50 → 5THW 23:09
PROVIDERS: ADMIT Internal Medicine; ATTEND Internal Medicine
PROC: 02H633Z Insertion of Infusion Device into Right Atrium, Percutaneous Approach (ICD-10-PCS; 2016-11-21)
PROC: 02HV33Z Insertion of Infusion Device into Superior Vena Cava, Percutaneous Approach (ICD-10-PCS; 2016-11-27)
PROC: 5A1D60Z (ICD-10-PCS; principal; 2016-11-27 12:37)
PROC: 0TB13ZX Excision of Left Kidney, Percutaneous Approach, Diagnostic (ICD-10-PCS; 2016-11-29)
DX: T81.4XXA Infection following a procedure, initial encounter (principal); N17.0 Acute kidney failure with tubular necrosis; L03.311 Cellulitis of abdominal wall; Z68.41 Body mass index [BMI] 40.0-44.9, adult; K91.872 Postprocedural seroma of a digestive system organ or structure following a digestive system procedure; I48.0 Paroxysmal atrial fibrillation; E11.9 Type 2 diabetes mellitus without complications; E66.01 Morbid (severe) obesity due to excess calories; I25.10 Atherosclerotic heart disease of native coronary artery without angina pectoris; Z79.82 Long term (current) use of aspirin; Z79.84 Long term (current) use of oral hypoglycemic drugs; Z79.4 Long term (current) use of insulin; G89.4 Chronic pain syndrome; Z87.891 Personal history of nicotine dependence; E87.6 Hypokalemia
CPT/HCPCS: 36415; 36569; 50200; 71010; 74176; 74177; 76770; 76937; 76942; 77001; 80048; 80053; 80069; 80170; 81001; 82040; 82436; 82553; 82947; 83540; 83605; 83690; 83735; 84100; 84300; 84466; 84484; 85014; 85018; 85025; 85610; 86403; 86704; 86706; 86850; 86900; 86901; 87040; 87071; 87077; 87088; 87186; 87340; 88300; 93005; 96365; 96366; 96375; 96376